=== PATIENT | female | born 1985 | race Caucasian/White ===

== ENCOUNTER 2016-09-23 09:35 | Inpatient (IN) | payer BC ==
[~2016-09-23] VITALS: Ht 157.5 cm; Wt 103.4 kg
[2016-09-23] VITALS (59 sets, daily range): BP systolic 79–127; BP diastolic 41–101; PULSE 89–155; RESP 18–20; TEMP 97.9–99.7
[~2016-09-23 09:35] MED LIST: DOCO200C PO
[2016-09-23] MEDS ORDERED: LACTATED RINGER'S 1000 ML INJ 1,000 ML IV PRN (10:43)
--- NOTE | 2016-09-23 10:43 | PD ---
HPI Chief Complaint Membrane rupture at 0300, clear fluid Date Seen: Sep 23, 2016 Travel History International Travel<30 Days: No Contact w/Intl Traveler<30Days: No Known Affected Area: No History of Present Illness HPI at 39 weeks gestation c/o rupture of membranes at 0300, clear, Occasional contractions. 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 SKIN: Warm and dry. HEAD: Normocephalic and atraumatic. EYES: No scleral icterus. No injection or drainage. ENT: No nasal drainage noted. Mucous membranes pink. Airway patent. NECK: Supple, trachea midline. No JVD. CARDIOVASCULAR: Regular rate and rhythm without murmurs, gallops, or rubs. RESPIRATORY: Breath sounds equal bilaterally. No accessory muscle use. BREASTS: Bilateral exam showed no masses , no retractions, no nipple discharge. ABDOMEN/GI: Abdomen soft, non-tender, bowel sounds present, no rebound, no guarding Gravid to 38weeks size Fundal Height: [-] GENITOURINARY: External Genitalia: intact and normal in appearance BUS glands: [-] Cervix: /-3 Dilatation: [-] Effacement: [-] Station: [-] Presentation: [-] Membranes: ruptured, amnisure negative Uterine Contractions: none FHT's: Category: 1 Baseline: 140 Reactive: moderate Variability: moderate Decels: abscent EXTREMITIES: No cyanosis or edema. BACK: Nontender without obvious deformity. No CVA tenderness. NEUROLOGICAL: Awake and alert. Motor and sensory grossly within normal limits. Five out of 5 muscle strength in all muscle groups. Normal speech. Data Data Vital Signs Reviewed: Yes Labs GBS negative [facility] Medical Record Reviewed: Yes Plan admit to Dr Gordillo Diagnosis Diagnosis: Primary Impression: 39 weeks gestation of Additional Impression: Rupture of membranes with clear amniotic fluid Aniya Rivas MD Sep 23, 2016 10:43
[2016-09-23] MEDS ORDERED: SODIUM CHLORID 0.9% 500 ML INJ 500 ML IV PRN (10:45)
[2016-09-23] MEDS ORDERED: CITRIC ACID-SODIUM CITRATE LIQ 30 ML UDC PO SCH (10:45)
[2016-09-23] MEDS ORDERED: MINERAL OIL 10 ML VIAL TOPICAL PRN (10:45)
[2016-09-23] MEDS ORDERED: LIDOCAINE HCL 1% 50 ML VIAL I-DERMAL PRN (10:45)
[2016-09-23] MEDS ORDERED: LIDOCAINE HCL 1% 50 ML VIAL INFIL PRN (10:45)
[2016-09-23] MEDS ORDERED: OXYTOCIN 30 UNITS-500ML PREMIX 500 ML IV ONE (10:45)
[2016-09-23] MEDS ORDERED: OXYTOCIN 30 UNITS-500ML PREMIX 500 ML IV SCH (11:00)
[2016-09-23] MEDS ORDERED: SODIUM CHLOR 0.9% 1000 ML INJ 1,000 ML IV PRN (11:03)
[2016-09-23 11:41] LABS: AUTOMATED NEUTROPHIL # 8.2 TH/MM3 (1.8-7.7); BASOPHIL % 0.3 % (0.0-2.0); EOSINOPHIL % 0.2 % (0.0-4.0); HEMATOCRIT 31.6 % (35.0-46.0); HEMO FLAGS DIFF FINAL; LYMPH % 21.2 % (9.0-44.0); LYMPHOCYTE # 2.4 TH/MM3 (1.0-4.8); MEAN CELL VOLUME 83.6 FL (80.0-100.0); MEAN CORPUSCULAR HEMOGLOBIN 27.2 PG (27.0-34.0); MEAN CORPUSCULAR HGB CONC 32.6 % (32.0-36.0); MONO % 6.8 % (0.0-8.0); NEUT % 71.5 % (16.0-70.0); PLATELET COUNT 326 TH/MM3 (150-450); RED BLOOD COUNT 3.78 MIL/MM3 (4.00-5.30); RED CELL DISTRIBUTION WIDTH 15.7 % (11.6-17.2); WHITE BLOOD COUNT 11.5 TH/MM3 (4.0-11.0)
[2016-09-23] MEDS: LACTATED RINGER'S 1000 ML INJ 1,000 ML IV SCH ×2 (12:39→17:43)
[2016-09-23] MEDS ORDERED: fentaNYL 2MCG-BUPIV 0.125% INJ 100 ML ONE (19:23)
[2016-09-23] MEDS ORDERED: ePHEDrine/NS 50 MG/5 ML SYR IV PRN (20:15)
[2016-09-23] MEDS ORDERED: fentaNYL 2MCG-BUPIV 0.125% INJ 100 ML EPIDURAL SCH (20:15)
[2016-09-23] MEDS ORDERED: DO NOT ADMINISTER ANTICOAGULANTS XX PRN (20:15)
[2016-09-23] MEDS ORDERED: NO SYSTEM NARCOTICS XX PRN (20:15)
[2016-09-23] MEDS ORDERED: PANT20 PO (23:38)
[2016-09-24] VITALS (25 sets, daily range): BP systolic 111–135; BP diastolic 55–79; PULSE 97–128; RESP 16–20; TEMP 98–99
[2016-09-24] MEDS ORDERED: ONDANSETRON HCL 4 MG/2 ML VIAL ONE (03:47)
[2016-09-24 04:14] LABS: BLOOD, URINE MOD (NEG); COMMENT (UR) CULTURE INDICATED; CULTURE IF INDICATED CULTURE INDICATED; GLUCOSE,URINE NEG (NEG); HYALINE CAST, URINE 2 /lpf (RARE); KETONE, URINE 150 mg/dL (NEG); MUCUS URINE MANY /lpf (OCC); NITRITE,URINE NEG (NEG); SQUAMOUS EPITHELIAL CELL URINE 2 /hpf (0-5); URINE COLOR YELLOW (YELLW/STRAW)
[2016-09-24] MEDS: LACTATED RINGER'S 1000 ML INJ 1,000 ML IV SCH ×3 (07:32→12:46)
[2016-09-24] MEDS ORDERED: PENICILLIN G POT 5,000,000 UNITS/NS 100 ML(Mini-Bag Plus) IV ONE ×2 (08:45)
[2016-09-24] MEDS ORDERED: ceFAZolin INJ 1,000 MG VIAL ONE (12:33)
[2016-09-24] MEDS ORDERED: OXYTOCIN 10 UNIT/ML AMP ONE (12:33)
[2016-09-24] MEDS: PENICILLIN G POT 2,500,000 UNITS/NS 100 ML IV SCH ×2 (12:51)
[2016-09-24] MEDS ORDERED: CITRIC ACID-SODIUM CITRATE LIQ 30 ML UDC ONE (13:32)
[2016-09-24] MEDS ORDERED: SODIUM CHLORIDE 0.9% FLUSH 5 ML FLUSH IV PRN (14:00)
[2016-09-24] MEDS ORDERED: ONDANSETRON HCL 4 MG/2 ML VIAL IV PUSH PRN (14:00)
[2016-09-24] MEDS ORDERED: oxyCODONE/ACETAMINOPHEN 5 MG/325 MG TAB PO PRN (14:00)
[2016-09-24] MEDS ORDERED: KETOROLAC TROMETHAMINE 60 MG/2 ML (IM) VIAL IM PRN ×2 (14:00)
[2016-09-24] MEDS ORDERED: OXYTOCIN 30 UNITS-500ML PREMIX 500 ML IV ONE (14:00)
[2016-09-24] MEDS ORDERED: SIMETHICONE 80 MG CHEWABLE TAB PO PRN (14:00)
[2016-09-24] MEDS ORDERED: MORPHINE SULFATE PF 5 MG/10 ML VIAL ONE (14:38)
[2016-09-24] MEDS ORDERED: OXYTOCIN 30 UNITS-500ML PREMIX 500 ML ONE (15:02)
[2016-09-24] MEDS ORDERED: KETOROLAC TROMETHAMINE 60 MG/2 ML (IM) VIAL IM ONE (15:02)
[2016-09-24] MEDS ORDERED: EPIDURAL-DIPHENHYDRAMINE HCL 50 MG CAP PO PRN (16:15)
[2016-09-24] MEDS ORDERED: EPIDURAL-DO NOT ADMINISTER ANTICOAGULANTS XX PRN (16:15)
[2016-09-24] MEDS ORDERED: EPIDURAL-DIPHENHYDRAMINE HCL 50 MG/ML VIAL IV PUSH PRN (16:15)
[2016-09-24] MEDS ORDERED: EPIDURAL-NO SYSTEMIC NARCOTICS XX PRN (16:15)
[2016-09-24] MEDS ORDERED: EPIDURAL-NALOXONE HCL 0.4 MG/ML AMP IV PRN (16:15)
[2016-09-24] MEDS ORDERED: PROMETHAZINE INJ 25 MG/ML VIAL IM PRN (17:45)
[2016-09-24] MEDS ORDERED: LACTATED RINGER'S 1000 ML INJ 1,000 ML IV SCH (18:47)
[2016-09-24] MEDS: SODIUM CHLORIDE 0.9% FLUSH 5 ML FLUSH IV SCH (21:00)
[2016-09-25] VITALS: BP 97/48; PULSE 97; RESP 18; TEMP 98.3
[2016-09-25] MEDS ORDERED: OXYTOCIN 30 UNITS-500ML PREMIX 500 ML IV PRN
[2016-09-25 03:00] VITALS: BP 98/72
[2016-09-25] MEDS: SODIUM CHLORIDE 0.9% FLUSH 5 ML FLUSH IV SCH (03:15)
[2016-09-25 05:00] VITALS: BP 121/75; PULSE 93; RESP 18; TEMP 97.9
[2016-09-25] MEDS: oxyCODONE/ACETAMINOPHEN 5 MG/325 MG TAB PO PRN ×2 (05:02→20:47)
[2016-09-25] MEDS: IBUPROFEN 600 MG TAB PO PRN ×3 (05:02→20:47)
[2016-09-25 06:00] LABS: AUTOMATED NEUTROPHIL # 20.5 TH/MM3 (1.8-7.7); HEMATOCRIT 24.4 % (35.0-46.0); HEMO FLAGS DIFF FINAL; LYMPHOCYTE # 2.5 TH/MM3 (1.0-4.8); MEAN CORPUSCULAR HEMOGLOBIN 28.1 PG (27.0-34.0); MONO % 6.2 % (0.0-8.0); NEUT % 83.8 % (16.0-70.0); PLATELET COUNT 243 TH/MM3 (150-450); RED BLOOD COUNT 2.87 MIL/MM3 (4.00-5.30); RED CELL DISTRIBUTION WIDTH 16.1 % (11.6-17.2); WHITE BLOOD COUNT 24.5 TH/MM3 (4.0-11.0)
[2016-09-25] MEDS: PENICILLIN G POT 2,500,000 UNITS/NS 100 ML IV SCH ×2 (07:16)
[2016-09-25 09:15] VITALS: BP 125/79; PULSE 111; RESP 20; TEMP 98.7
[2016-09-25 15:55] VITALS: BP 105/71; PULSE 99; RESP 18; TEMP 98.1
[2016-09-25] MEDS ORDERED: DIPHTH/TETANUS/ACEL PERTUSSIS (BOOSTER) 0.5 ML VIAL/PFS IM ONE (16:00)
[2016-09-25] MEDS ORDERED: MEASLES, MUMPS, RUBELLA VACCINE 0.5 ML VIAL SQ ONE (16:00)
[2016-09-25 20:20] VITALS: BP 111/67; PULSE 106; RESP 20; TEMP 97.8
[2016-09-25] MEDS: DOCUSATE SODIUM 50 MG/SENNA 8.6 MG TAB PO PRN (20:48)
[2016-09-26] MEDS: IBUPROFEN 600 MG TAB PO PRN ×3 (05:25→19:10)
[2016-09-26] MEDS: oxyCODONE/ACETAMINOPHEN 5 MG/325 MG TAB PO PRN ×3 (05:26→19:11)
[2016-09-26 07:35] VITALS: BP 105/61; PULSE 85; RESP 18; TEMP 98.3
[2016-09-26] MEDS: SODIUM CHLORIDE 0.9% FLUSH 5 ML FLUSH IV SCH (09:00)
[2016-09-26] MEDS: PENICILLIN G POT 2,500,000 UNITS/NS 100 ML IV SCH ×4 (09:00→13:00)
[2016-09-26] MEDS: LACTATED RINGER'S 1000 ML INJ 1,000 ML IV SCH (10:43)
[2016-09-26] MEDS: DOCUSATE SODIUM 50 MG/SENNA 8.6 MG TAB PO PRN ×2 (12:29→22:11)
--- NOTE | 2016-09-26 17:39 | HHI.OB ---
Subjective Post Operative Day: 2 Remarks pain controlled, mod lochia, iris po, +void/flatus Objective Vitals/I&O Vital Signs Date Time Temp Pulse Resp B/P Pulse Ox O2 Delivery O2 Flow Rate FiO2 09/26/16 07:35 98.3 18 09/26/16 07:35 85 105/61 09/25/16 20:20 97.8 20 09/25/16 20:20 106 111/67 Result Diagram: 09/25/16 0545 Objective Remarks GENERAL: Well-nourished, well-developed patient. CARDIOVASCULAR: Regular rate and rhythm without murmurs, gallops, or rubs. RESPIRATORY: Breath sounds equal bilaterally. No accessory muscle use. ABDOMEN/GI: Abdomen soft, non-tender, bowel sounds present. Incision: Clean, dry and intact with martha Fundus: Firm, non-tender at umbilicus. GENITOURINARY: Light to moderate bleeding. EXTREMITIES: No cyanosis or edema, non-tender, without signs of DVT. Medications and IVs Current Medications Medications (Trade) Dose Ordered Sig/Abby Route Start Time Stop Time Status Last Admin Lactated Ringer's 1,000 ml @ 125 mls/hr Q8H IV 09/23/16 10:43 09/24/16 12:46 Lactated Ringer's 1,000 ml @ 3,000 mls/hr Q20M PRN IV 09/23/16 10:43 (NS 1000 ml Inj) 1,000 ml @ 100 mls/hr Q10H PRN IV 09/23/16 11:03 (fentaNYL INJ) 50 mcg Q1H PRN IV PUSH 09/23/16 10:45 (fentaNYL INJ) 100 mcg Q1H PRN IV PUSH 09/23/16 10:45 Mineral Oil 10 ml 10 ml UNSCH PRN TOPICAL 09/23/16 10:45 Oxytocin 500 ml @ 0 mls/hr TITRATE IV 09/23/16 11:00 09/23/16 12:42 Fentanyl/ Bupivacaine HCl 100 ml @ 0 mls/hr TITRATE EPIDURAL 09/23/16 20:15 09/24/16 08:57 (Pfizerpen-G Inj/ NS Inj) 100 ml @ 200 mls/hr Q4H IV 09/24/16 13:00 09/24/16 12:51 (NS Flush) 2 ml BID IV 09/24/16 21:00 09/25/16 03:15 (NS Flush) 2 ml UNSCH PRN IV 09/24/16 14:00 (Mylicon Chew) 80 mg QID PRN PO 09/24/16 14:00 (Motrin) 600 mg Q6H PRN PO 09/24/16 14:00 09/26/16 12:13 (Percocet 5-325 Mg) 1 tab Q4H PRN PO 09/24/16 14:00 09/25/16 16:00 (Percocet 5-325 Mg) 2 tab Q4H PRN PO 09/24/16 14:00 09/26/16 12:14 (Amparo-Colace) 2 tab Q12H PRN PO 09/24/16 14:00 09/26/16 12:29 (Zofran Inj) 4 mg Q6H PRN IV PUSH 09/24/16 14:00 (Phenergan Inj) 25 mg Q6H PRN IM 09/24/16 17:45 09/24/16 17:58 Assessment/Plan Problem List: (1) delivery, delivered, current hospitalization Plan: routine pp care d/c home in AM Nadeem Leach MD Sep 26, 2016 17:39
[2016-09-26] MEDS ORDERED: OXYC1TAB63 PO (17:40)
[2016-09-26] MEDS ORDERED: IBUP-232 PO (17:40)
--- NOTE | 2016-09-26 17:45 | HHI.DCPOC ---
Discharge Care Plan Diagnosis: (1) delivery, delivered, current hospitalization (2) Rupture of membranes with clear amniotic fluid Your Health Problems Are: delivery Report Symptoms to Your Doctor -Temperate above 100.5 degrees -Redness, of incision or excessive or foul smelling drainage -Unusual pain or calf pain -Increased vaginal bleeding -Painful or difficulty urinating -Feelings of extreme sadness or anxiety after 2 weeks Goals to Promote Your Health * To prevent worsening of your condition and complications * To maintain your health at the optimal level Directions to Meet Your Goals Take your medications as prescribed Follow your dietary instruction Follow activity as directed Ensure plenty of rest for recovery Drink fluids for hydration Keep your appointments as scheduled Take your immunizations and boosters as scheduled If your symptoms worsen call your PCP, if no PCP go to Urgent Care Center or Emergency Room Smoking is Dangerous to Your Health. Avoid second hand smoke Call the 24-hour crisis hotline for domestic abuse at Nadeem Leach MD Sep 26, 2016 17:45
[2016-09-26 19:38] VITALS: BP_SYST 111; BP_SYST 141; BP_DIAS 77; PULSE 104; RESP 20; TEMP 97.8; O2SAT 99
[2016-09-27] MEDS: oxyCODONE/ACETAMINOPHEN 5 MG/325 MG TAB PO PRN (00:52)
[2016-09-27] MEDS: IBUPROFEN 600 MG TAB PO PRN ×2 (00:53→08:12)
--- NOTE | 2016-09-27 06:43 | MP ---
cc: ELENA SILVA M.D. DATE OF SURGERY: 09/24/2016 PREOPERATIVE DIAGNOSIS Intrauterine at 39+ weeks gestation with arrest of descent of labor. POSTOPERATIVE DIAGNOSIS Intrauterine at 39+ weeks gestation with arrest of descent of labor. PROCEDURE PERFORMED Primary low transverse section. OPERATING SURGEON Dr. Elena Silva ANESTHESIA Epidural. FINDINGS Findings in surgery included a viable male weighing 7 pounds 12 ounces with Apgars 8 and 9. Normal-appearing tubes and ovaries. Prominent sacral root noted on exam. ESTIMATED BLOOD LOSS 800 cc. COMPLICATIONS None. DETAILS OF PROCEDURE After proper consents were obtained, the patient was taken to the operating room and adequate level of anesthetic was achieved. A Pfannenstiel skin incision was performed. This was carried down to the fascia using the Bovie cautery. The fascia was nicked in the midline and extended superolaterally on each side. We then had blunt dissection of the muscles off of the fascia. The peritoneum was identified, grasped with two hemostats, entered sharply with Metzenbaum scissors. This was extended superiorly inferiorly paying close attention to the bladder. A bladder blade was placed. A bladder flap was developed. The bladder blade was replaced. A transverse incision was made in the lower uterine segment. This was extended using the finger fracture technique. We then had controlled delivery of the vertex with a nuchal cord x1 reduced with a controlled delivery of the body followed. Bulb suction to the oropharynx and nares. Cord was clamped x2, cut in between, and the was handed to the team in attendance, a viable male 7 pounds 12 ounces with Apgars of 8 and 9. At this time a cord blood sample was obtained. The placenta was removed. The uterus was exteriorized, wiped clean of clots and debris. The uterine incision was closed with a #1 chromic suture starting at each apex and meeting in the midline in a running interlocking fashion. Excellent hemostasis was noted. We then performed. Some irrigation of the abdominopelvic cavity. The uterine incision was hemostatic as we placed the uterus back into the abdominal pelvic cavity. We then closed the muscles using a #1 chromic suture x1. We then closed the fascia using 0 Vicryl starting at each apex and meeting in the midline in a running fashion. Irrigation was performed of the subcu and the skin was closed with martha. All sponge, lap and needle counts were correct x3. MD JOY Hernandez/BT /4:18 PM /6:35 AM
[2016-09-27 08:00] VITALS: BP 116/62; PULSE 95; RESP 17; TEMP 98.5
== END 2016-09-27 11:03 | disposition home or self-care (01) | DRG 766 ==
LOC: HOBED 09:35 → H2EA 10:51 → H1EA 09-24 15:58
PROVIDERS: ADMIT Obstetrics & Gynecology; ATTEND Obstetrics & Gynecology
PROC: 10D00Z1 Extraction of Products of Conception, Low, Open Approach (ICD-10-PCS; principal; 2016-09-24)
DX: O62.1 Secondary uterine inertia (principal); K21.9 Gastro-esophageal reflux disease without esophagitis; Z37.0 Single live birth; Z3A.39 39 weeks gestation of pregnancy
CPT/HCPCS: 81001; 84112; 85025; 86900; 86901; 87086; 90715; 99284; J0690; J1200; J1885; J2274; J2405; J2540; J2550; J2590; J7120

== ENCOUNTER 2018-04-04 10:41 | Inpatient (IN) ==
--- NOTE | 2018-04-04 11:11 | ED ---
History of Present Illness Primary Care Physician: Anthony Perdomo MD History of Present Illness: cc: contractions 33-year-old , IUP at 38.4 weeks care complicated by prior delivery, obesity Patient presents complaining of the onset of painful contractions at about 2:30 or 3:00am. She reports the contractions were initially about every 8-10 minutes and have increased in intensity and frequency to now every 7-9 minutes. The contractions have been aggravated with time. The patient has drank 4 bottles of water without a decrease in the contractions. She reports she was 2 cm dilated in the office 4 days ago. She denies any vaginal bleeding or leaking of fluid. She reports good movement. 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 Past medical history: Obesity Family history: Denies Past surgical history: delivery Para: 2 : 3 Review of Systems All other systems reviewed negative except as stated in HPI PMFSH - Tobacco History Smoking Status: Never smoker - Alcohol History How Often Do You Have a Drink Containing Alcohol: Never - Travel History History of Recent Travel: No Recent Travel in the [place] Within the Last 8 Weeks: No Recent Travel Out of the Country Within the Last 8 Weeks: No Medications and Allergies Active Medications: Active Medications Sodium Chloride (Ns Flush) 2 ml IV.FLUSH BID [place] Sodium Chloride (Ns Flush) 2 ml IV.FLUSH PRN PRN PRN Reason: FLUSH AFTER USING IV ACCESS Allergies Allergy/AdvReac Type Severity Reaction Status Date / Time gentamicin Allergy Severe ANAPHALAXIS Unverified 04/07/17 14:07 Exam Vital signs: Intake & Output 04/03/18 04/04/18 04/04/18 18:59 06:59 18:59 Weight 110.223 kg Narrative: GENERAL: Well-nourished, well-developed patient. SKIN: Warm and dry. HEAD: Normocephalic and atraumatic. EYES: No scleral icterus. No injection or drainage. ENT: No nasal drainage noted. Mucous membranes pink. Airway patent. NECK: Supple, trachea midline. No JVD. CARDIOVASCULAR: Regular rate and rhythm without murmurs, gallops, or rubs. RESPIRATORY: Breath sounds equal bilaterally. No accessory muscle use. BREASTS: Deferred ABDOMEN/GI: Abdomen soft, non-tender, bowel sounds present, no rebound, no guarding Gravid GENITOURINARY: External Genitalia: intact and normal in appearance. Normal BUS. No cervical or vaginal masses noted. Physiologic discharge noted. Grossly normal rugae. SVE by RN /. FHT's: heart tones are in the 140s with moderate long-term variability, good accelerations, no decelerations noted. This a category 1 heart rate tracing and a reactive NST EXTREMITIES: No cyanosis or edema. BACK: Nontender without obvious deformity. NEUROLOGICAL: Awake and alert. Motor and sensory grossly within normal limits. Grossly normal muscle strength in all muscle groups. Normal speech. Grossly normal range of motion, gait Psychiatric: Grossly normal memory/affect Assessment and Plan - Plan Assessment/plan: 1. IUP at 38.4 weeks 2. Early labor: We will admit patient to Dr. Gordillo for repeat delivery 3. Previous section: Patient was consented for repeat delivery with risks and benefits discussed with the patient. Risks include but are not limited to pain, infection, bleeding, injury to other organs like the bladder/bowel/nerves/vessels, injury to the baby, need for repeat operation, need for hysterectomy, need for blood transfusion, wound infection/breakdown, and other possible complications. All of the patient's questions were answered and orders will be placed. 4. well-being: Reassuring testing with reactive NST and category 1 heart rate tracing, will continue monitoring for now 5. Obesity Discharge Plan - Physicians Team ED Provider: Kalyani Dsouza Primary Care Provider: Anthony Perdomo - Discharge Instructions Print Language: [place]se
[2018-04-04] MEDS ORDERED: Citric Acid/Sodium Citrate Liq 30 ML UDC PO SCH (11:45)
[2018-04-04] MEDS ORDERED: Ketorolac Inj 30 MG/ML (IVP) Vial IV.PUSH ONE (12:00)
[2018-04-04] MEDS ORDERED: ceFAZolin Inj 2,000 MG in Sodium Chlor 0.9% Inj 80 ML IV.SIG SCH (12:00)
[2018-04-04 12:31] LABS: Baso % (Auto) 0.2 % (0.0-2.0); Eos % (Auto) 0.3 % (0.0-4.0); Hematocrit 29.4 % (35.0-46.0); Hemoglobin 10.1 gm/dL (11.6-15.3); Lymph # (Auto) 2.1 th/mm3 (1.0-4.8); Lymph % (Auto) 20.9 % (9.0-44.0); Mean Corpuscular HGB Conc 34.3 % (32.0-36.0); Mean Corpuscular Hemoglobin 29.3 pg (27.0-34.0); Mean Corpuscular Volume 85.5 fL (80.0-100.0); Mean Platelet Volume 7.1 fL (7.0-11.0); Mono # (Auto) 0.7 th/mm3 (0.0-0.9); Mono % (Auto) 7.2 % (0.0-8.0); Neut # (Auto) 7.1 th/mm3 (1.8-7.7); Neut % (Auto) 71.4 % (16.0-70.0); Platelet Count 260 th/mm3 (150-450); Red Blood Count 3.44 mil/mm3 (4.00-5.30); Red Cell Distribution Width 16.2 % (11.6-17.2); White Blood Count 9.9 th/mm3 (4.0-11.0)
[2018-04-04] MEDS ORDERED: Oxytocin 30 Units/500ml Premix 30 UNITS/500 ML BAG IV.SIG ONE ×2 (12:51→13:30)
[2018-04-04] MEDS ORDERED: Simethicone 80 MG Chew Tablet PO PRN (12:51)
[2018-04-04] MEDS ORDERED: Morphine Sulfate PF Inj 5 MG/10 ML Ampul ONE (13:11)
[2018-04-04 13:34] LABS: Amphetamine Urine With Conf Neg (Neg); Bacteria,Urine Occasional /hpf; Benzodiazepine Urine With Conf Neg (Neg); Bilirubin,Urine Negative (Negative); Clarity,Urine Hazy (Clear); Color,Urine Yellow (Yellw/Straw); Glucose,Urine (UA) Negative (Negative); Leukocyte Esterase,Urine Negative (Negative); Mucus,Urine Few /lpf (Occasional); Nitrite,Urine Negative (Negative); Specific Gravity,Urine 1.016 (1.002-1.035); Squamous Epithelial Cell,Urine 5 /hpf (0-5)
[2018-04-04] MEDS ORDERED: fentaNYL Citrate Inj 100 MCG/2 ML Ampul ONE (13:47)
[2018-04-04 17:43] VITALS: RESP 18
[2018-04-04] MEDS ORDERED: Oxytocin 30 Units/500ml Premix 30 UNITS/500 ML BAG IV.SIG PRN ×2 (17:51)
[2018-04-04] MEDS ORDERED: Naloxone Inj 0.4 MG/ML Vial IV.PUSH PRN (21:06)
[2018-04-04] MEDS: ceFAZolin Inj 2,000 MG in Sodium Chlor 0.9% Inj 80 ML IV.SIG SCH (23:08)
[2018-04-05] MEDS: ceFAZolin Inj 2,000 MG in Sodium Chlor 0.9% Inj 80 ML IV.SIG SCH (05:51)
[2018-04-05] MEDS: Ibuprofen 600 MG Tablet PO PRN ×2 (05:51→19:45)
--- NOTE | 2018-04-05 11:21 | MP ---
cc: Fartun Joseph MD DATE OF OPERATION: 04/04/2018 PREOPERATIVE DIAGNOSES: 1. Intrauterine at 38+ weeks' gestation. 2. Previous with previous . 3. Active labor. POSTOPERATIVE DIAGNOSES: 1. Intrauterine at 38+ weeks' gestation. 2. Previous with previous . 3. Active labor. PROCEDURE PERFORMED: Repeat low-transverse section. SURGEON: Fartun Fernandes MD. ANESTHESIA: Spinal, Dr. Camarillo. FINDINGS: Included a viable female, 6 pounds 10 ounces with Apgars 8 and 9. Normal-appearing tubes and ovaries bilaterally. Some adhesions of the bladder to the lower uterine segment. COMPLICATIONS: None. ESTIMATED BLOOD LOSS: 800 mL. PROCEDURE IN DETAIL: After proper consents were obtained and blood had been typed and screened, patient was taken to the operating room where spinal anesthetic was placed. She was then placed in the dorsal position, sterilely prepped and draped, and a Katz catheter was placed. At this time, using a sharp knife, I went through a prior Pfannenstiel skin incision. This was carried down to the fascia using the Bovie cautery. The fascia was nicked in the midline and extended superiorly and laterally on each side using the Bovie cautery. There was blunt dissection of the muscles off of the fascia. Peritoneum was identified, grasped with a hemostat, and entered sharply with the Metzenbaum scissors. This was then extended superiorly and inferiorly, paying close attention to the bladder. The bladder blade was placed. Bladder flap was developed. There were a lot of adhesions of the bladder up on the lower uterine segment that came down nicely. Bladder blade was replaced. A transverse incision was made in the lower uterine segment. This was extended using a finger fracture technique. Rupture of membranes revealed clear fluid and controlled delivery of the vertex. Bulb suction to the pharynx and the nares, and controlled delivery of the body. Cord was clamped x2, cut in between. The was handed to team in attendance. A viable female, 6 pounds 10 ounces with Apgars 8 and 9. At this time, cord blood sample was obtained. Placenta was removed. Uterus was exteriorized, wiped clean of clots and debris. The uterine incision was closed with a #1 chromic suture starting at each apex and in the midline in a running interlocking fashion. Excellent hemostasis was noted. Irrigation was performed in the abdominopelvic cavity. Hemostasis was assured. We placed the uterus back into the abdominopelvic cavity. We reapproximated the muscles using a #1 chromic suture x1. We then closed the fascia using 0 Vicryl starting at each apex and in the midline in a running fashion. Irrigation performed of the subcutaneous. Hemostasis was achieved with Bovie cautery. There was no space to close, so we closed the skin using martha. All sponge, lap, and needle counts were correct x3. MD JOY Hernandez/pw , 09:08 AM , 09:15 AM
--- NOTE | 2018-04-05 11:22 | P.PNOB ---
Subjective Post op day: 1 Interval history: POD # 1 s/p repeat c/s with good pain control, urinating well, ambulating well, toelrating po Objective Vital Signs/I&O: Vital Signs 04/04/18 14:24 04/04/18 14:44 04/04/18 15:00 Temperature 98.1 F Pulse Rate 90 83 82 Respiratory Rate 17 18 20 Blood Pressure 127/73 120/65 114/66 04/04/18 15:15 04/04/18 15:30 04/04/18 15:42 Temperature Pulse Rate 85 87 74 Respiratory Rate 17 21 19 Blood Pressure 108/60 133/71 130/70 04/04/18 16:45 04/04/18 20:00 04/05/18 01:15 Temperature 97.9 F 98.1 F 98.1 F Pulse Rate 84 80 92 H Respiratory Rate 18 18 18 Blood Pressure 129/77 108/73 114/69 04/05/18 05:45 04/05/18 08:05 Temperature 97.7 F 98.2 F Pulse Rate 94 H 91 H Respiratory Rate 18 18 Blood Pressure 112/76 120/71 Intake & Output 04/04/18 04/05/18 04/05/18 18:59 06:59 18:59 Intake Total 100 / 100 Balance 100 / 100 Weight 110.223 kg Intake: IV 100 / 100 Ancef Inj 2,000 MG In NS Inj 80 100 / 100 ML @ 200 mls/hr IV.SIG Q8H [facility] Rx#:[id number] Result Diagrams: 04/04/18 11:40 Objective Remarks: GENERAL: Well-nourished, well-developed patient. CARDIOVASCULAR: Regular rate and rhythm without murmurs, gallops, or rubs. RESPIRATORY: Breath sounds equal bilaterally. No accessory muscle use. ABDOMEN/GI: Abdomen soft, non-tender, bowel sounds present. Incision: Clean, dry and intact. Fundus: Firm, non-tender at umbilicus. GENITOURINARY: Light to moderate bleeding. EXTREMITIES: No cyanosis or edema, non-tender, without signs of DVT. Medications and IVs: Active Medications Citric Acid/Sodium Citrate (Sodium Citrate/Citric Acid Liq) 30 ml PO HEAD OF HISTORY [facility] Stop: 04/08/18 11:44 Last Admin: 04/04/18 13:09 Dose: 30 ml Diphenhydramine HCl (Benadryl Inj) 25 mg IV.PUSH Q6H PRN PRN Reason: MILD TO MODERATE ITCHING Stop: 04/05/18 21:05 Diphenhydramine HCl (Benadryl) 50 mg PO Q6H PRN PRN Reason: MILD TO MODERATE ITCHING Stop: 04/05/18 21:05 Last Admin: 04/05/18 05:51 Dose: 50 mg Diphtheria/Pertussis/Tetanus Vacc (Boostrix Vaccine Inj) 0.5 ml IM .ONCE ONE Stop: 04/05/18 16:01 Cefazolin Sodium 2,000 mg/ (Sodium Chloride) 100 mls @ 200 mls/hr IV.SIG HEAD OF HISTORY [place] Stop: 04/08/18 11:59 Lactated Ringer's (Lr 1000 Ml Inj) 1,000 mls @ 150 mls/hr IV.CONT .Q6H40M [place] Lactated Ringer's (Lr 1000 Ml Inj) 1,000 mls @ 100 mls/hr IV.CONT .Q10H [facility] Stop: 04/05/18 13:50 Oxytocin (Pitocin 30 Units/Ns 500 Ml Premix) 30 units in 500 mls @ 100 mls/hr IV.SIG UNSCH PRN PRN Reason: Heavy bleeding Ibuprofen (Motrin) 600 mg PO Q6HR PRN PRN Reason: cramping Last Admin: 04/05/18 05:51 Dose: 600 mg Ketorolac Tromethamine (Toradol Inj) 30 mg IM Q6H PRN PRN Reason: SEE LABEL COMMENTS Stop: 04/07/18 12:50 Measles/Mumps/Rubella Vaccine Live (M-M-R Ii Vaccine Inj) 0.5 ml SQ .ONCE ONE Stop: 04/05/18 16:01 Miscellaneous Information ([facility]) 1 each OTHER UNSCH PRN PRN Reason: SEE LABEL COMMENTS Stop: 04/05/18 21:05 Miscellaneous Information ([facility]) 1 each OTHER UNSCH PRN PRN Reason: SEE LABEL COMMENTS Stop: 04/05/18 21:05 Naloxone HCl (Narcan Inj) 0.4 mg IV.PUSH UNSCH PRN PRN Reason: SEE LABEL COMMENTS Stop: 04/05/18 21:05 Ondansetron HCl (Zofran Inj) 4 mg IV.PUSH Q6H PRN PRN Reason: NAUSEA OR VOMITING Last Admin: 04/04/18 16:41 Dose: 4 mg Oxycodone/Acetaminophen (Percocet 5/325 Mg) 1 tab PO Q4H PRN PRN Reason: PAIN SCALE 3 TO 5 Oxycodone/Acetaminophen (Percocet 5/325 Mg) 2 tab PO Q4H PRN PRN Reason: PAIN SCALE 6 TO 10 Senna/Docusate Sodium (Amparo-Colace) 2 tab PO Q12H PRN PRN Reason: CONSTIPATION Simethicone (Mylicon Chew) 80 mg PO QID PRN PRN Reason: FLATULENCE Sodium Chloride (Ns Flush) 2 ml IV.FLUSH BID [place] Last Admin: 04/05/18 05:49 Dose: Not Given Sodium Chloride (Ns Flush) 2 ml IV.FLUSH UNSCH PRN PRN Reason: FLUSH AFTER USING IV ACCESS Assessment and Plan - Plan POD # 1 s/p repeat c/s doing well, routine care
[2018-04-05] MEDS ORDERED: Diphtheria/Tetanus/Pertussis Vaccine Inj 0.5 ML Syringe IM ONE (16:00)
[2018-04-05] MEDS ORDERED: Measles/Mumps/Rubella Vaccine Inj 0.5 ML Vial SQ ONE (16:00)
[2018-04-05] MEDS: Senna/Docusate Sodium 8.6/50 MG Tablet PO PRN (19:45)
[2018-04-06] MEDS: Ibuprofen 600 MG Tablet PO PRN ×2 (03:50→11:56)
[2018-04-06 09:28] VITALS: BP 115/67; PULSE 86; TEMP 98.4
[2018-04-06] MEDS: Senna/Docusate Sodium 8.6/50 MG Tablet PO PRN (11:57)
== END 2018-04-06 15:12 | disposition home or self-care (01) ==
LOC: HOBED 10:41 → H2E 11:59 → H1EA 15:54
PROVIDERS: ADMIT Obstetrics & Gynecology; ATTEND Obstetrics & Gynecology